=== PATIENT | female | born 1950 | race Caucasian/White ===

== ENCOUNTER → 2019-09-17 10:43 | Outpatient (BNVA) | payer MEDICARE, OTHER, SELFPAY | PROVIDERS: Family Provider Nurse Practitioner Family; PCP Nurse Practitioner Family; Visit Provider Internal Medicine Rheumatology | DX: M05.79 Rheumatoid arthritis with rheumatoid factor of multiple sites without organ or systems involvement (principal); Z79.899 Other long term (current) drug therapy; Z79.52 Long term (current) use of systemic steroids; M15.9 Polyosteoarthritis, unspecified | CPT/HCPCS: 99213 ==

== ENCOUNTER → 2019-11-24 14:04 | Outpatient (BNVA) | payer MEDICARE, OTHER, SELFPAY | PROVIDERS: Family Provider Nurse Practitioner Family; PCP Nurse Practitioner Family; Visit Provider Internal Medicine Rheumatology | DX: M05.79 Rheumatoid arthritis with rheumatoid factor of multiple sites without organ or systems involvement (principal); Z79.899 Other long term (current) drug therapy; Z87.891 Personal history of nicotine dependence | CPT/HCPCS: G0463 ==

== ENCOUNTER 2019-12-09 13:42 | Outpatient (CLI) | payer MEDICARE, OTHER, SELFPAY ==
--- NOTE | 2019-12-09 14:00 | CT_ITS ---
WS: [id number] CT CHEST TECHNIQUE: Contrast enhanced CT of the chest with coronal and sagittal reformatted images. CLINICAL INFORMATION: Nodular Density in the Rt lower lobe COMPARISON: Radiograph November 25, 2019 DLP: 994.[address] scans at [facility] use at least one of these dose optimization techniques: automat ed exposure control; mA and/or kV adjustment per patient size (includes targeted exams where dose is matched to clinical indication); or iterative reconstruction. FINDINGS: Moderate chronic emphysematous changes. No acute pulmonary infiltrates. No focal pneumonia. Subsegmen roro atelectasis in the right upper lobe. Subpleural opacity in the right upper lobe anteriorly measur ing 7 mm. Additional 4 mm noncalcified groundglass nodule left lower lobe. No axillary lymphadenopath y. Aortic calcification. Coronary calcification. Normal endobronchial tree. Adrenal glands are normal. C holecystectomy clips. Left TSA. Mild thoracic curve and thoracic kyphosis. Anterior wedging with Schm orl's node at L1 with endplate Schmorl's node. CT/CT chest w con* [id number] IMPRESSION: 1. Noncalcified subpleural opacity in the right upper lobe anteriorly measurin g 7 mm. Adjacent subsegmental atelectasis. Recommend 6 month follow-up. 2. Noncalcified hazy groundglass nodule left lower lobe measuring 4 mm. 3. Coronary calcification. 4. Cholecystectomy clips.
[2019-12-09 14:25] LABS: Blood Urea Nitrogen 14 mg/dL (8-23)
[2019-12-09] MEDS: iodixanol 320 mg/mL 100mL Btl IV (14:33)
== END 2019-12-09 13:43 | disposition home or self-care (01) ==
LOC: RADWPI 13:46
PROVIDERS: Family Provider Nurse Practitioner Family; PCP Nurse Practitioner Family; Visit Provider Internal Medicine Rheumatology
DX: R91.1 Solitary pulmonary nodule (principal)
CPT/HCPCS: 71260; 82565; 84520; Q9967

== ENCOUNTER 2020-02-11 13:52 | Outpatient (CLI) | payer MEDICARE, OTHER, SELFPAY ==
--- NOTE | 2020-02-11 14:29 | PFTS_ITS ---
Date of Study:02/11/20 Date of Dictation: MECHANICS: Forced vital capacity (FVC) is reduced. Forced expiratory volume in one second (FEV1) is normal . FEV1/FVC is normal. FLOW VOLUME LOOP: Narrow. LUNG VOLUMES: Total lung capacity (TLC) is normal. Residual volume (RV) is reduced . DIFFUSING CAPACITY FOR CARBON MONOXIDE: Normal. INTERPRETATION: The pulmonary function tests are Reduced consistent with mild restriction. Lung volumes are consistent with extrathoracic restriction with preserved inspiratory capacity and reduced expiratory reserve volume. Gas exchange is normal. MTDD
== END 2020-02-11 13:53 | disposition home or self-care (01) ==
LOC: RT 13:56
PROVIDERS: PCP Nurse Practitioner Family; Visit Provider Internal Medicine Critical Care Medicine
DX: R06.02 Shortness of breath (principal)
CPT/HCPCS: 94010; 94726; 94729

== ENCOUNTER → 2020-02-25 10:03 | Outpatient (BNVA) | payer MEDICARE, OTHER, SELFPAY | PROVIDERS: PCP Nurse Practitioner Family; Visit Provider Internal Medicine Rheumatology | DX: M05.79 Rheumatoid arthritis with rheumatoid factor of multiple sites without organ or systems involvement (principal); Z79.899 Other long term (current) drug therapy; Z87.891 Personal history of nicotine dependence; R91.1 Solitary pulmonary nodule; M17.0 Bilateral primary osteoarthritis of knee; K75.81 Nonalcoholic steatohepatitis (NASH); Z79.52 Long term (current) use of systemic steroids | CPT/HCPCS: 99214 ==

== ENCOUNTER 2020-06-25 09:05 | Outpatient (CLI) | payer MEDICARE, OTHER, SELFPAY ==
--- NOTE | 2020-06-25 09:15 | CT_ITS ---
WS: [id number] CT scan of the chest without IV contrast, additional two-dimensional coronal and sagittal reconstruct ion was performed. 06/25/2020 Clinical Data: Pulmonary nodule Comparison: CT chest, 12/09/2019. DLP: 965.[address] scans at [facility] use at least one of these dose optimization techniques: automat ed exposure control; mA and/or kV adjustment per patient size (includes targeted exams where dose is matched to clinical indication); or iterative reconstruction. Findings: There is no change in the right upper lobe pleural-based nodule measuring 0.5 cm in thickness seen be st on image 25 and 58. There is no change in the 0.4 cm left lower lobe nodule seen best on axial aleshia ge 40 of 58. The heart size is normal with no pericardial effusion. Coronary artery calcification and thoracic aortic calcification are present. The pulmonary arterial system and thoracic aorta demonstr ate no abnormalities or dilatations. No pneumonia or pneumothorax is seen. The pulmonary vascularity is normal. There is no axillary or significant mediastinal adenopathy. The upper abdomen shows clips from a cholecystectomy. Degenerative change of the thoracic vertebral b odies is moderate. CT/CT chest wo con [id number] Impression: 1. No change in right upper lobe pleural-based nodule and left lower lobe nodul e and recommend no further workup. 2. Negative for acute cardiopulmonary disease.
== END 2020-06-25 09:06 | disposition home or self-care (01) ==
LOC: RADWPI 09:09
PROVIDERS: PCP Nurse Practitioner Family; Visit Provider Internal Medicine Critical Care Medicine
DX: R91.1 Solitary pulmonary nodule (principal)
CPT/HCPCS: 71250

== ENCOUNTER → 2020-08-09 10:38 | Outpatient (BNVA) | payer MEDICARE, OTHER, SELFPAY | PROVIDERS: PCP Nurse Practitioner Family; Visit Provider Internal Medicine Rheumatology | DX: M05.79 Rheumatoid arthritis with rheumatoid factor of multiple sites without organ or systems involvement (principal); Z79.899 Other long term (current) drug therapy; M54.31 Sciatica, right side; M54.5 Low back pain; G89.29 Other chronic pain; K75.81 Nonalcoholic steatohepatitis (NASH); M19.071 Primary osteoarthritis, right ankle and foot; M19.072 Primary osteoarthritis, left ankle and foot; M19.012 Primary osteoarthritis, left shoulder; M19.011 Primary osteoarthritis, right shoulder; M16.0 Bilateral primary osteoarthritis of hip; M47.816 Spondylosis without myelopathy or radiculopathy, lumbar region; S22.080A Wedge compression fracture of T11-T12 vertebra, initial encounter for closed fracture; X58.XXXA Exposure to other specified factors, initial encounter | CPT/HCPCS: 99214 ==

== ENCOUNTER 2020-08-09 11:31 | Outpatient (CLI) | payer MEDICARE, OTHER, SELFPAY ==
--- NOTE | 2020-08-09 11:45 | XR_ITS ---
WS: [id number] PELVIS: AP VIEW SUBMITTED HISTORY: M54.31 - Sciatica, right side COMPARISON: None available. Mild osteopenia. Facet joint arthritis lower lumbar spine. Mild narrowing of the hips bilaterally. Sl ightly greater degenerative joint disease involving the LEFT hip. No bone destruction. 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
--- NOTE | 2020-08-09 11:45 | XR_ITS ---
WS: [id number] LUMBAR SPINE: 3 VIEWS TECHNIQUE: AP, lateral and L5-S1 spot. HISTORY: M54.31 - Sciatica, right side COMPARISON: None available. Mild RIGHT convex curvature lumbar spine with increased lordosis. Mild disc space narrowing and degen eration most significant at L4-5. T12 compression fracture appears remote at 20%. Endplate osteophyte s of the lumbar spine and facet joint arthritis. SI joints are symmetric bilaterally. No soft tissue abnormalities. Prior cholecystectomy. Heavy calcification in aorta. XR/XR lumbar spine 2-3V* [id number] IMPRESSION: 1. Lumbar spondylosis with facet joint arthritis. 2. Remote 20% T12 compression fracture.
== END 2020-08-09 11:32 | disposition home or self-care (01) ==
LOC: RADWPI 11:39
PROVIDERS: PCP Nurse Practitioner Family; Visit Provider Internal Medicine Rheumatology
DX: M54.31 Sciatica, right side (principal); G89.29 Other chronic pain; M16.0 Bilateral primary osteoarthritis of hip; M47.816 Spondylosis without myelopathy or radiculopathy, lumbar region; S22.080A Wedge compression fracture of T11-T12 vertebra, initial encounter for closed fracture; X58.XXXA Exposure to other specified factors, initial encounter
CPT/HCPCS: 72100; 72170

== ENCOUNTER 2020-08-11 13:53 | Outpatient (CLI) | payer MEDICARE, OTHER, SELFPAY ==
--- NOTE | 2020-08-11 14:15 | XR_ITS ---
WS: [id number] Bone mineral density performed on a [facility], 08/11/2020 Clinical data: Z13.820 - Encounter for screening for osteoporosis Comparison study: DEXA scan, 04/15/2014. Findings: The first 4 lumbar vertebral bodies demonstrated the bone mineral density of 1.221 g/cm2 for a young adult T score of 0.3. Measurement of the left hip reveals a bone mineral density of 1.004 g/cm2 with a young adult T score of 0.0. Measurement of the right hip reveals the bone mineral density of 0.987 g/cm2 for young adult T score of -0.2. XR/XR DEXA axial skeleton* [id number] Impression: 1. The bone mineral density of the lumbar spine is normal and shows only a mild decrease from the prior study. 2. The bone mineral density of the left hip is normal and shows a slight improv ement compared to the prior study. 3. The bone density of the right hip is normal and shows a slight decrease from the prior study.
== END 2020-08-11 13:54 | disposition home or self-care (01) ==
LOC: RADWPI 13:56
PROVIDERS: PCP Nurse Practitioner Family; Visit Provider Internal Medicine Rheumatology
DX: Z13.820 Encounter for screening for osteoporosis (principal)
CPT/HCPCS: 77080

== ENCOUNTER → 2020-12-27 12:41 | Outpatient (BNVA) | payer MEDICARE, OTHER, SELFPAY | PROVIDERS: PCP Nurse Practitioner Family; Visit Provider Internal Medicine Rheumatology | DX: M05.79 Rheumatoid arthritis with rheumatoid factor of multiple sites without organ or systems involvement (principal); Z79.899 Other long term (current) drug therapy; M54.31 Sciatica, right side; M19.071 Primary osteoarthritis, right ankle and foot; M19.072 Primary osteoarthritis, left ankle and foot; K75.81 Nonalcoholic steatohepatitis (NASH); Z87.891 Personal history of nicotine dependence | CPT/HCPCS: 99214 ==

== ENCOUNTER → 2021-04-14 12:39 | Outpatient (BNVA) | payer MEDICARE, BC, SELFPAY | PROVIDERS: PCP Nurse Practitioner Family; Visit Provider Internal Medicine Rheumatology | DX: M05.79 Rheumatoid arthritis with rheumatoid factor of multiple sites without organ or systems involvement (principal); Z79.899 Other long term (current) drug therapy; K75.81 Nonalcoholic steatohepatitis (NASH); M15.9 Polyosteoarthritis, unspecified; Z71.89 Other specified counseling; Z87.891 Personal history of nicotine dependence | CPT/HCPCS: 99214 ==